=== PATIENT | male | born 1955 | race Caucasian/White ===

== ENCOUNTER 2017-12-05 16:59 | Emergency (ER) | payer OTHER ==
[~2017-12-05] VITALS: Ht 175.3 cm; Wt 81.7 kg
[~2017-12-05 16:59] MED LIST: BACTRIM DS TAB1 EACH PO; CARDURA4 MG PO; CLONIDINE HCL0.2 M2 PO; DEPAKOTE500 MG PO; EFFEXOR XR150 MG PO; NORVASC10 MG PO; PROAIR HFA8.5 GM; PROCTOCREAM-HC30 G1 RC; TOPROL XL100 MG PO
[2017-12-05] MEDS ORDERED: HYDROCODONE-AP1 EAC6 PO (18:02)
[2017-12-05 20:29] VITALS: BP 145/82
== END 2017-12-05 20:29 | disposition home or self-care (01) ==
LOC: ER 16:59
DX: H40.9 Unspecified glaucoma (principal); H21.561 Pupillary abnormality, right eye; J44.9 Chronic obstructive pulmonary disease, unspecified; Z88.1 Allergy status to other antibiotic agents; Z88.6 Allergy status to analgesic agent; Z88.8 Allergy status to other drugs, medicaments and biological substances